=== PATIENT | female | born 1965 | race Caucasian/White ===

== ENCOUNTER 2016-12-11 05:50 | Day surgery (SDC) | payer BC ==
[~2016-12-11] VITALS: Ht 162.6 cm; Wt 56.0 kg
[~2016-12-11 05:50] MED LIST: ASCO500T43 PO; CRAN1CAP6 PO; HYDR25SU38 RECTALLY; IBUP-1724 PO
--- OUTSIDE RECORDS SUMMARY | 2016-12-11 05:54 | XMS REPORT ---
Author Author GENERATED, SYSTEM Organization Unknown Address Unknown Phone Unavailable Care Team Providers Care Coal Sample Tester Name Role Phone MD KELTON, NARDA PP [phone] Reason For Visit Chief Complaint FEELS BAD Social History Functional Status Vital Signs Results Problems Encounter Diagnosis No relevant problems exist. Encounters Encounter Diagnosis No relevant problems exist. Plan of Care Procedures No relevant procedures performed. Immunizations No immunizations administered or ordered. Hospital Course Hospital Discharge Instructions Allergies, Adverse Reactions, Alerts * Latex Allergy has not been assessed. * IV Contrast Allergy has not been assessed. Medication Medication reconciliation has not been performed.
--- OUTSIDE RECORDS SUMMARY | 2016-12-11 05:55 | XMS REPORT ---
Author Author Trevor Mercado Organization [employer] Address Unknown Phone Unavailable Care Team Providers Care Sales Representative Rural Power Name Role Phone Trevor Mercado CP Unavailable Allergies No Known Allergies Problems Problem Type Condition Code Onset Dates Condition Status Assessment Dental caries, unspecified K02.9 Active Medications No Known Medications Procedures Procedure Coding System Code Date RESIN COMPOS - 2 SURFACES POSTERIOR CPT-4 D2392 Jun 16, 2016 Results No Known Results Summary Purpose [employer] Submission
--- OUTSIDE RECORDS SUMMARY | 2016-12-11 05:55 | XMS REPORT | Referral Summary ---
Author Author [facility] Organization [facility] Address Unknown Phone Unavailable Care Team Providers Care Aviation Electrician Name Role Phone No PCP, States Primary Care Physician [phone] Encounter VC Date(s): 09/04/15 - 09/04/15 [facility] [address] [place] [id number] Discharge Disposition: 01-Home or Self Care Attending Physician: Arya Velez MD Vital Signs Most recent to 1 oldest [Reference Range]: Temperature Tympanic 36.7 degC [36.6-38.1 degC] (09/04/15 9:47 AM) Peripheral Pulse 76 bpm Rate [60-100 bpm] (09/04/15 9:47 AM) Blood Pressure 120/78 mmHg [90-140/60-90 mmHg] (09/04/15 9:47 AM) Problem List Condition Effective Dates Status Health Status Informant Tobacco Active patient user(Confirmed) Allergies, Adverse Reactions, Alerts No Known Allergies Medications Bactrim DS 800 mg-160 mg oral tablet 1 tabs, Oral, BID, X 7 days, # 14 tabs, 0 Refill(s), Pharmacy: [facility] #[id number] Start Date: 09/04/15 Stop Date: 09/11/15 Status: Ordered Results Urinalysis Most recent to 1 oldest [Reference Range]: UA Color Yellow (09/04/15 10:00 AM) UA Appear Clear (09/04/15 10:00 AM) UA pH [5.0-8.0] 6.0 (09/04/15 10:00 AM) UA Leuk Est Negative [Negative] (09/04/15 10:00 AM) UA Nitrite Negative [Negative] (09/04/15 10:00 AM) UA Protein Negative [Negative] (09/04/15 10:00 AM) UA Glucose Negative [Negative] (09/04/15 10:00 AM) UA Ketones Negative [Negative] (09/04/15 10:00 AM) UA Urobilinogen 0.2 mg/dL [<=1.0 mg/dL] (09/04/15 10:00 AM) UA Bili [Negative] Negative (09/04/15 10:00 AM) UA Blood [Negative] Negative (09/04/15 10:00 AM) UA Spec Grav <=1.005 [1.003-1.030] (09/04/15 10:00 AM) Type Clean Catch (09/04/15 10:00 AM) Immunizations No data available for this section Procedures No data available for this section Social History Social History Type Response Smoking Status Current every day smoker Assessment and Plan Extracted from: Title: Office Visit Note Author: Arya Velez MD Date: 09/04/15 Assessment/Plan Lower urinary tract symptoms Plan: I'm going to culture your urine and see what grows out. In the meantime I am going to place you on Bactrim. Let me know if your symptoms are not improving or if you're developing new or concerning symptoms. Stay well-hydrated. Orders: sulfamethoxazole-trimethoprim, 1 tabs, Oral, BID, X 7 days, # 14 tabs , 0 Refill(s), Pharmacy: [facility] #[id number]
--- OUTSIDE RECORDS SUMMARY | 2016-12-11 05:55 | XMS REPORT | Continuity of Care Document ---
Author Author [facility] Organization [facility] Address Unknown Phone Unavailable Allergies Active Description Code Type Severity Reaction Onset Reported/Identified Relationship to Patient Clinical Status Yes No Known Drug Allergies Drug Allergy 06/14/2012 Yes No Known Drug Allergies Drug Allergy N/A N/A 06/14/2012 Medications Problems Date Dx Coded Attending Type Code Diagnosis Diagnosed By 06/14/2012 Bruce Kimbrough MD Final 305.1 TOBACCO USE DISORDER 06/14/2012 Bruce Kimbrough MD Final 338.19 ACUTE PAIN NEC 06/14/2012 Bruce Kimbrough MD Final 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 Visit Date/Time Discharge Status Pt. Type Provider Facility Loc./Unit Complaint [id number] 06/14/2012 13:25:00 2011 15:13:00 DIS Emergency Bruce Kimbrough MD [facility] [place]
--- OUTSIDE RECORDS SUMMARY | 2016-12-11 05:55 | XMS REPORT ---
Author Author Trevor Mercado Organization [employer] Address Unknown Phone Unavailable Care Team Providers Care Shot Blast Equipment Operator Name Role Phone Trevor Mercado CP Unavailable Allergies, Adverse Reactions, Alerts Substance Reaction Event Type N.K.D.A. Info Not Available Non Drug Allergy Problems Problem Type Condition Code Onset Dates Condition Status Assessment Encounter for dental examination and cleaning without abnormal findings Z01.20 Active Medications No Known Medications Procedures Procedure Coding System Code Date PALLIATVE TX DENTAL PAIN-MINOR PROC CPT-4 D9110 Jun 09, 2016 LTD ORAL EVALUATION - PROBLEM FOCUS CPT-4 D0140 Jun 09, 2016 Results No Known Results Summary Purpose eClinicalWorks Submission
[2016-12-11 06:14] VITALS: Ht 162.6 cm; Wt 56.0 kg
[2016-12-11 06:15] VITALS: BP 136/82; PULSE 78; RESP 13; TEMP 98.3; O2SAT 95
--- NOTE | 2016-12-11 06:59 | ANESPREOP ---
Anesthesia Record Date and Time DATE: 12/11/16 TIME: 06:57 Proposed Surgical Procedure COLONOSCOPY NPO since: 2229 Allergies: Coded Allergies: No Known Drug Allergies (Verified Allergy, Unknown, 12/11/16) Ht/Wt/BMI Height: 5 ' 4.00 " Weight: 56.000 kg BMI: 21.2 kg/m2 Vital Signs Date Time Temp Pulse Resp B/P Pulse Ox O2 Delivery O2 Flow Rate FiO2 12/11/16 06:15 98.3 78 13 136/82 95 Room Air Medications Inpatient Medications Current Medications Medications (Trade) Dose Ordered Sig/Gloria Start Time Stop Time Status Last Admin Dose Admin Lactated Ringer's (Lactated Ringers) 1,000 ml @ 50 mls/hr Q20H 12/11/16 07:00 12/11/16 06:45 50 MLS/HR Ascorbic Acid (Vitamin C) 500 Mg Tablet.er, 1 TAB PO DAILY, (Reported) Last Taken: on 12/09/16 Cranberry Conc/Ascorbic Acid (Cranberry Plus Vitamin C Sftgl) 1 Each Capsule, 1 CAP PO DAILY, (Reported) Last Taken: on 12/09/16 Hydrocortisone Acetate (Anusol-Hc) 25 Mg Supp.rect , 1 UNIT RECTALLY DAILY PRN for HEMORRHOIDS, (Reported) Last Taken: on 12/10/16 2100 Ibuprofen (Ibuprofen) 200 Mg Tablet, 2 TAB PO PRN, (Reported) Last Taken: on 12/04/16 Currently on Beta Greyson: No Medical/Surgical History Anesthesia PMH: Reports: Hiatal Hernia, Tuberculosis (HX OF TESTED POSITIVE- DOES CHEST XRAY AND MEDS) Smoking Status: Current every day smoker # of Packs per Day: 0.5 # of Years: 35 Use Chewing Tobacco?: No Second Hand Exposure: No Substance Use Type: does not use Alcohol Intake: none HX of Last Menstrual Period: 2007 Past Surgical History Orthopedic Surgeries: Abdominal Surgeries: Yes - APPY (with hyst) Genitourinary Surgeries: Yes - SUMAYA Cardiac Surgeries: No Endocrine Surgeries: No Reproductive Surgeries: No Neurological Surgeries: No Ear Surgeries: No Nose Surgeries: No Throat Surgeries: No Other Surgeries: Yes - EGD Anesthesia Adverse Reactions: FOUND none Family Hx of Anesthesia Advers: none Hx of Motion Sickness: No Pertinent Findings EKG Rhythm: Sinus Rhythm Physical Exam Respiratory: Bilat breath sounds equal, Lungs clear Cardiovascular: FOUND Regular rate, rhythm Airway Assessment Mallampati Score: I Neck Extension: Good Overall Assessment: No Airway Concerns ASA: 2 Plan Anesthesia Plan: TIVA, LMA Discussion Discussed risks/options/alternatives of anesthesia and questions answered. Patient consents. Nursing pain assessment noted. Attestation Statement Prior to the delivery of any anesthetic medication, I examined the patient, developed the plan, obtained the patient's consent and discussed the risk and benefits of the procedure with the patient/guardian. SABINA HA DATA SECURITY ADMINISTRATOR Dec 11, 2016 06:59
[2016-12-11] MEDS ORDERED: LR 1,000 ML IV SCH (07:00)
[2016-12-11] MEDS ORDERED: LIDOCAINE 1% (10mg/ml) 2ml SDV INJ ONE (07:00)
[2016-12-11] MEDS ORDERED: PROPOFOL 500mg 50 ML IV ONE (07:15)
[2016-12-11 08:07] VITALS: BP 113/68; PULSE 71; RESP 18; TEMP 97.8; O2SAT 100
[2016-12-11 08:15] VITALS: BP 128/78; PULSE 74; RESP 18; O2SAT 99
[2016-12-11 08:30] VITALS: BP 139/83; PULSE 68; RESP 18; O2SAT 99
[2016-12-11 08:45] VITALS: BP 142/78; PULSE 72; RESP 18; O2SAT 99
--- NOTE | 2016-12-11 08:49 | ANESPO ---
Post-Op Note Date 12/11/16 Time: 08:45 Status Pt Participated in Evaluation: Pt participated in person Vital Signs Date Time Temp Pulse Resp B/P Pulse Ox O2 Delivery O2 Flow Rate FiO2 12/11/16 08:15 74 18 128/78 99 Room Air 12/11/16 08:07 97.8 Respiratory Function: Airway patent, Regular respirations Cardiovascular Function: Regular pulse Mental Status: Alert/oriented Pain Level Intensity: 0 Hydration: Taking po fluids Complications during Recovery None apparent Follow-Up Instructions Instructions Per Surgeon SABINA HA CRNA Dec 11, 2016 08:49
--- NOTE | 2016-12-11 11:16 | OPNOTEF ---
DATE OF OPERATION 12/11/2016 PREOPERATIVE DIAGNOSIS Rectal bleeding. POSTOPERATIVE DIAGNOSIS Rectal bleeding, within normal limits. OPERATION Colonoscopy, no biopsies taken. SURGEON Dell Sams M.D. ANESTHESIA TIVA DESCRIPTION OF OPERATIVE PROCEDURE The patient was prepped with Colyte the evening prior to the procedure. She was placed in the left lateral position. After a benign digital rectal exam, the colonoscope was inserted and advanced to the cecum without difficulty. Cecal landmarks were identified and the scope was slowly retracted. The ascending colon, cecum, transverse colon and sigmoid showed no evidence of hemorrhage, mass lesions, ulcerations, polyps or diverticular disease. There were no significant inflammatory changes. The rectum and anus were clear. The colon was suctioned. The scope removed with patient tolerating the procedure well. Follow up colonoscopy recommended in 10 years or sooner as clinically indicated. ROWENA
[2016-12-14] MEDS ORDERED: CLIN300C86 PO (16:29)
== END 2016-12-11 08:50 | disposition home or self-care (01) ==
LOC: SCU 05:50
DX: K62.5 Hemorrhage of anus and rectum (principal); Z72.0 Tobacco use; Z79.899 Other long term (current) drug therapy
CPT/HCPCS: 45378; J2704; J7120

== ENCOUNTER 2018-01-10 22:34 | Inpatient (IN) ==
--- NOTE | 2018-01-10 22:44 | Emergency Department Report ---
Lower Extremity Injury HPI - General Chief Complaint: Fall Stated Complaint: Slip fall/L hip pain Time Seen by Provider: 01/10/18 22:38 Source: patient, EMS Mode of arrival: EMS Limitations: no limitations - History of Present Illness HPI Narrative: Patient admits she "had a couple beers" and then was messing around with her adult children in her home, when she slipped and fell onto her left side on a hardwood floor. Patient had immediate severe left hip pain, just distal to the hip joint. Patient took "4 shots of rum to help with the pain," but the pain was unrelenting so she called EMS. Patient was given 50 g of fentanyl in route , with little relief of the pain. Currently patient states she is having ongoing pain, but would like to avoid further narcotics because she does not like the way they make her feel. - Related Data Home Medications Medication Instructions Recorded Confirmed Ibuprofen 2 tab PO PRN #0 12/05/15 11/05/17 Ascorbic Acid [Vitamin C] 1 tab PO DAILY #0 tab 12/10/16 11/05/17 Cranberry Conc/Ascorbic Acid 1 cap PO DAILY #0 12/10/16 11/05/17 [Cranberry Plus Vitamin C Sftgl] Hydrocortisone Acetate [Anusol-Hc] 1 unit RECTALLY DAILY PRN #0 12/10/16 Zyrtec (Cetirizine) 10 mg tablet 10 mg PO DAILY PRN 09/21/17 11/05/17 ferrous sulfate 325 mg (65 mg 325 mg PO DAILY tab 09/21/17 11/05/17 iron) tablet Previous Rx's Medication Instructions Recorded Medrol (Caio) (methylprednisolone) 4 mg PO DAILY #21 tab 11/05/17 4 mg tablets, dose pack Allergies Allergy/AdvReac Type Severity Reaction Status Date / Time No Known Drug Allergies Allergy Unknown Verified 01/10/18 22:44 Review of Systems All systems: reviewed and negative except as stated PFSH Patient Stated Medical History Dental Problems Yes Hiatal Hernia Yes Osteoarthritis Yes Clinic Medical History (Last Updated 11/04/17 @ 11:24 by YASSINE Leong) Scoliosis (Chronic Medical) Bronchitis (Resolved Medical) Surgical History: Colonoscopy, Dr. Sams, 2017. *Hysterectomy w/ intact ovaries - 2008 Family History: Family History (Last Updated 11/04/17 @ 11:22 by Marcia Robison Amelia) Brother Heart attack High blood pressure High cholesterol COPD (chronic obstructive pulmonary disease) Stroke Daughter Anxiety Mother Arthritis Osteoporosis High blood pressure Maternal Grandmother Dementia - Social History Smoking status: Current every day smoker Substance use type: does not use Alcohol intake: current Alcohol intake frequency: holidays/special occasions only Current occupational status: employed Physical Exam - Limitations Limitations: no limitations - General General appearance: alert, other (patient is in obvious pain, but declines pain medication at this time) - Normal Exams: Head:: Normocephalic without trauma Eyes:: Pupils are PERRLA w/ EOMI, No scleral icterus, irritation, or foreign bodies noted ENMT:: No facial trauma, nasal exudates, pharyngeal erythema, or exudates are noted Neck:: Full range of motion, without adenopathy, JVD, bruits or thyromegaly Chest/Respirations:: Clear all willis, with good airflow, and symmetry bilaterally Cardiovascular:: Regular rate and rhythm, without murmur or gallop, Pulses 2+ all extremities, capillary refill, <2 seconds all extremities Genitourinary:: Vulva without rashes, or lesions, no exudate or bleeding, noted externally Lymphatic:: No lymphadenopathy, or lymphedema noted Integumentary:: No rashes, hives, or bruising noted, hair and nails, without abnormality Neurological:: Patient is alert, and oriented, cranial nerves, motor/sensory/ cerebellar, exams w/o gross deficits, to observation Psychiatric:: Patient exhibits, appropriate attention, emotion and affect - Extremities Exam Extremities exam: Present: other (significant left lateral hip tenderness, with severe pain with any movement of the hip. Neurovascularly intact) Course Vital Signs Temperature 97.9 F 01/10/18 22:36 Pulse Rate 110 H 01/10/18 22:36 Respiratory Rate 20 01/10/18 22:36 Blood Pressure 152/80 H 01/10/18 22:36 Pulse Oximetry 95 01/10/18 22:36 Temperature 98.2 F 01/10/18 23:06 Pulse Rate 89 01/10/18 23:06 Respiratory Rate 24 01/10/18 23:06 Blood Pressure 119/69 01/10/18 23:06 Pulse Oximetry 96 01/10/18 23:06 Extremity Injury, Lower - MDM Narrative Medical decision making narrative: Hip/pelvic film shows proximal left femoral neck fracture with mild impaction Case is discussed with [facility] surgery, patient will be admitted to surgical floor outpatient to Dr. Leggett, with an expected hospitalist consultation for preop clearance. After the case and findings were discussed with the patient, she is accepting of pain medication, and is given 0.5 mg Dilaudid IV Disposition Clinical Impression: Fracture of femoral neck, left Qualifiers: Encounter type: initial encounter Fracture type: closed Qualified Code(s): S72.002A - Fracture of unspecified part of neck of left femur, initial encounter for closed fracture Disposition: 02 To O[place] [facility] [place]: Improved Prescriptions: No Action Ibuprofen 2 tab PO PRN #0 Cranberry Conc/Ascorbic Acid [Cranberry Plus Vitamin C Sftgl] 1 cap PO DAILY #0 Hydrocortisone Acetate [Anusol-Hc] 1 unit RECTALLY DAILY PRN #0 PRN Reason: HEMORRHOIDS Ascorbic Acid [Vitamin C] 1 tab PO DAILY #0 tab ferrous sulfate 325 mg (65 mg iron) tablet 325 mg PO DAILY tab Medrol (Caio) (methylprednisolone) 4 mg tablets, dose pack 4 mg PO DAILY #21 tab Zyrtec (Cetirizine) 10 mg tablet 10 mg PO DAILY PRN Referrals: Ivan Herr MD [Family Provider] - - Seen By: physician
[2018-01-10] MEDS ORDERED: SALINE FLUSH 10ml SYRINGE IVF PRN (23:58)
[2018-01-11] MEDS ORDERED: HYDROMORPHONE 2 MG/ML INJECTION IVP ONE ×2 (00:14)
[2018-01-11 00:54] VITALS: BMI 22.5
[2018-01-11] MEDS: NS 1,000 ML IV SCH ×3 (00:59→18:14)
[2018-01-11] MEDS: MORPHINE SULFATE 10 MG/ML VIAL IVP PRN ×3 (01:59→07:22)
--- NOTE | 2018-01-11 07:43 | Orthopedic History & Physical ---
Orthopedic HPI - HPI Comments Patient was messing around with her adult children in her home, when she slipped and fell onto her left side on a hardwood floor. She had immediate pain and was unable to ambulate due to severe pain. EMS was called and pt brought to [facility] for further evaluation. In the ER, pt admitted to having some beer and then taking several shots of rum after the fall to help with the pain. Xrays revealed a mildly impacted left femoral neck fracture. Pt was admitted under Dr Leggett's service for possible surgical fixation of this fracture. She denies striking her head or having any other areas of pain after the fall. [facility] Patient Stated Medical History Dental Problems Yes Hiatal Hernia Yes Osteoarthritis Yes Clinic Medical History (Last Updated 11/04/17 @ 11:24 by YASSINE Leong) Scoliosis (Chronic Medical) Bronchitis (Resolved Medical) Surgical History: Colonoscopy, Dr. Sams, 2017. *Hysterectomy w/ intact ovaries - 2008 Family History: Family History (Last Updated 11/04/17 @ 11:22 by YASSINE Leong) Brother Heart attack High blood pressure High cholesterol COPD (chronic obstructive pulmonary disease) Stroke Daughter Anxiety Mother Arthritis Osteoporosis High blood pressure Maternal Grandmother Dementia - Social History Smoking status: Current every day smoker (down to 1/2 pack per day at this time. ) Substance use type: does not use Alcohol intake: current Alcohol intake frequency: holidays/special occasions only Current occupational status: employed Review of Systems - Constitutional Constitutional: Absent: chills, fever(s), headache(s) - Cardiovascular Cardiovascular: Absent: chest pain, palpitations, syncope, dyspnea on exertion - Respiratory Respiratory: Absent: cough, dyspnea - Gastrointestinal Gastrointestinal: Absent: abdominal pain, diarrhea, vomiting - Genitourinary Genitourinary Female: Absent: dysuria - Musculoskeletal Musculoskeletal: Present: as per HPI - Integumentary/Breasts Integumentary: Absent: lesions, rash - Neurological Neurological: Absent: frequent falls, numbness, paresthesias - Hematologic/Lymphatic Hematologic/Lymphatic: Absent: easy bleeding Medications Home Medications Medication Instructions Recorded Confirmed Type Ibuprofen 2 tab PO PRN #0 12/05/15 01/11/18 History Ascorbic Acid [Vitamin C] 1 tab PO DAILY #0 tab 12/10/16 01/11/18 History Cranberry Conc/Ascorbic Acid 1 cap PO DAILY #0 12/10/16 01/11/18 History [Cranberry Plus Vitamin C Sftgl] Hydrocortisone Acetate [Anusol-Hc] 1 unit RECTALLY DAILY PRN #0 12/10/16 History Zyrtec (Cetirizine) 10 mg tablet 10 mg PO DAILY PRN 09/21/17 01/11/18 History ferrous sulfate 325 mg (65 mg 325 mg PO DAILY tab 09/21/17 01/11/18 History iron) tablet Allergies Allergy/AdvReac Type Severity Reaction Status Date / Time No Known Drug Allergies Allergy Unknown Verified 01/10/18 22:44 Exam - Constitutional Vital Signs: Temperature 97.9 F 01/11/18 07:24 Pulse Rate 79 01/11/18 07:24 Respiratory Rate 18 01/11/18 07:24 Blood Pressure 135/82 01/11/18 07:24 Pulse Oximetry 97 01/11/18 07:24 General: cooperative, healthy appearing, no acute distress, well developed Nutritional Appearance: well nourished Orientation: alert - Psych Mood: normal Affect: normal Attitude: cooperative - LLE General: normal to inspection, no obvious deformity Hip Palpation: Tender: lateral, greater trochanter Skin: no rashes or lesions noted, no ecchymosis, no lacerations or abrasions Hip Range of Motion: hip ROM painful Ankle Range of Motion: normal ROM Neurological: no deficits, normal to light touch Vascular: dorsalis pedis pulse within normal limits - Labs Result Diagrams: 01/11/18 00:33 01/11/18 00:33 Abnormal lab results 01/11/18 Range/Units 00:33 Sodium 145 H (134-144) MEQ/L Anion Gap 17 H (5-15) meq/L Specimen Hemolysis 139 H (0-25) H & H 01/11/18 Range/Units 00:33 Hgb 13.8 (12-16) GM/DL Hct 41.1 (36-46) % Coagulation 01/11/18 Range/Units 00:34 INR 0.96 (0.92-1.18) Orthopedic Assessment and Plan (1) Fracture of femoral neck, left Status: Acute Qualifiers: Qualified Code(s): S72.002A - Fracture of unspecified part of neck of left femur, initial encounter for closed fracture Assessment and Plan: Pt is generally in good overall health and has been active. Discussed the nature of her injury as well as surgical options and recommendations. Will plan on cannulated screw fixation of the left hip later today if cleared medically. Discussed the risk vs benefits and possible complications related to this procedure. Pt informed that screw fixations occasionally fail and may require additional surgery. Pt encouraged to stop smoking as it can affect her ability to heal this fracture. Will offer smoking cessation education while she is in the hospital. SCDs for DVT protection. She will need Lovenox post op for DVT coverage. Hospital Course Summary Disclaimer: The visit summary below is not to be considered part of the above Progress Note.
[2018-01-11] MEDS ORDERED: MORPHINE SULFATE 10 MG SYRINGE IVP PRN (07:45)
--- NOTE | 2018-01-11 07:56 | Consult Note ---
Consult Information - Data of Consult Consult date: 01/11/18 Requesting Physician: Kam Leggett MD Primary Care Provider: Ivan Herr MD - Consult Narrative Reason for consult: Pre-op/medical management History of present illness: Patient was "messing around" w/ her adult children, celebrating that she (her daughter) was likely going to get her kids back (there is a court collins) - had a few (3) beers, playing with Nerf guns, slipped on wood floor and hit the floor. Had immediate pain. States she tried a few shots of rum for the pain but it was clear that wasn't going to help so they called EMS. She reports she drinks a 12 pack over the course of a weekend. Doesn't typically drink during the week. "Social drinker. I'm a light weight." NO illegal drugs. Doesn't like using narcotics. Smokes 1/2ppd currently - trying to quit. No chronic health problems. Has been in her usual state of health. Last ate a piece of bologna at 3pm yesterday. In ED she was found to have a mildly impacted L hip fx and was admitted under ortho service for repair. Hospitalist group consulted for pre-op clearance/med management. Past Medical History Medical History: Medical History (Last Updated 11/04/17 @ 11:24 by Marcia Robison [facility]) Scoliosis (Chronic) Bronchitis (Resolved) Surgical History: Colonoscopy, Dr. Sams, 2017. *Hysterectomy w/ intact ovaries - 2008 (secondary to fibroids) Family History: Family History Brother Heart attack High blood pressure High cholesterol COPD (chronic obstructive pulmonary disease) Stroke Daughter Anxiety Mother Osteoporosis High blood pressure Maternal Grandmother Dementia Family History: As Above - Social History Smoking status: Current every day smoker (currently smokes 1/2ppd. 15+ year history of smoking) Substance use type: does not use Alcohol intake frequency: other (drinks on weekends - 12 pack over the entrie weekend. 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 Worse with movement.) Medications Home Medications Medication Instructions Recorded Confirmed Type Ibuprofen 2 tab PO PRN #0 12/05/15 01/11/18 History Ascorbic Acid [Vitamin C] 1 tab PO DAILY #0 tab 12/10/16 01/11/18 History Cranberry Conc/Ascorbic Acid 1 cap PO DAILY #0 12/10/16 01/11/18 History [Cranberry Plus Vitamin C Sftgl] Hydrocortisone Acetate [Anusol-Hc] 1 unit RECTALLY DAILY PRN #0 12/10/16 History Zyrtec (Cetirizine) 10 mg tablet 10 mg PO DAILY PRN 09/21/17 01/11/18 History ferrous sulfate 325 mg (65 mg 325 mg PO DAILY tab 09/21/17 01/11/18 History iron) tablet Allergies Allergy/AdvReac Type Severity Reaction Status Date / Time No Known Drug Allergies Allergy Unknown Verified 01/10/18 22:44 Exam Vital Signs: Temperature 97.9 F 01/11/18 07:24 Pulse Rate 79 01/11/18 07:24 Respiratory Rate 18 01/11/18 07:24 Blood Pressure 135/82 01/11/18 07:24 Pulse Oximetry 97 01/11/18 07:24 Height/Weight/BMI: Height 1.63 m Weight 60.2 kg Body Mass Index 22.5 - Constitutional Present: no acute distress, well nourished, well developed - Routine HEENT Exam Head: Present: normocephalic, atraumatic Eye: Present: EOMI, PERRL ENT: Present: mucous membranes moist, oropharynx clear - Routine Neck Exam Absent: lymphadenopathy - Routine Respiratory Exam Present: CTA bilaterally. Absent: wheezes - Routine Cardiovascular Exam Present: RRR, no murmur - Routine Abdominal Exam Present: soft, normoactive bowel sounds. Absent: tenderness, distended - Routine Extremities Exam Present: no edema, normal capillary refill Comments: pain in L hip. No bruising. - Routine Skin Exam Present: dry, warm - Routine Neurological Exam Present: alert, oriented X3, CN II-XII intact - Routine Psychiatric Exam Present: normal affect, cooperative Results - Labs CBC & Chem 7: 01/11/18 00:33 01/11/18 00:33 - Imaging and Cardiology Chest x-ray Status: image reviewed by me Additional comments: no acute findings Assessment and Plan (1) Fracture of femoral neck, left Current visit: Yes Status: Acute Assessment and Plan: Assessment Left femoral neck fracture Tobacco abuse Mild hypernatremia - POA (145) Plan NPO for surgery later today. IVF's and pain management per ortho. EKG, CXR labs completed. Add liver panel, GGT and urine drug screen. Good surgical candidate. SCD's for DVT ppx Consult RT for tobacco cessation. Offer nicotine patch. Full Code. Care to return to Dr. Taylor on DC. Thanks for the consult. Will follow until DC. DVT Prophylaxis: SCD's Resuscitation Status: Full Code - Physician Narrative Physician: Viviana Doyle MD Narrative: Date: 01/11/18 Time: 9:35 AM-I reviewed this chart, the patient history, and the STRUCTURAL METAL WORKER's/PA's documented findings as above. We discussed and formulated the assessment and plan as above with the additions below.-Dr. Doyle The patient was seen this morning in her room. She states that she was running on a wood floor with socks on and slipped and fell hard on her left hip. She did not lose consciousness. She did not hit her head. She did feel lightheaded after she fell and thinks this was secondary to pain. She states she does not drink on a daily basis. She states she has been otherwise well. No recent fevers chills or sweats. No chest pains or palpitations. No lightheadedness other than last night after her fall. She did have an episode in August when she was under a lot of stress and went to see her mother. She had an episode of loss of consciousness witnessed by her children. She was evaluated by Dr. Portillo for possible seizure. She underwent CT head and MRI which were reportedly normal. She states that they decided she probably was suffering from exhaustion. She had never had an episode like that before and has not had any episodes since. She has changed jobs and her stress level has improved. On exam she is alert and in no acute distress. HEENT Reveals sclerae to be anicteric, oropharynx is moist. Neck is supple. Chest is clear to auscultation. Cardiovascular reveals a regular rate and rhythm. Abdomen is soft and nontender. Extremities are free of edema. Skin is warm and dry and without rashes. Chest x-ray on my read and per radiology reveals no cardiopulmonary abnormalities Liver enzymes show mildly elevated AST at 42. Total protein is high at 8.7. Albumin is high at 5.2. GGT is pending. Remainder of labs as above. Impression and plan Closed posttraumatic left femoral neck fracture-plan for surgery later today as long as EKG shows no significant abnormalities. EKG has been ordered and is pending at this time. CBC and basic metabolic profile tomorrow. Excessive alcohol use. Current recommendations are no more than 1 drink per day for women. Will discuss with the patient. Evaluation for possible osteoporosis. Hospital Course Summary Disclaimer: The visit summary below is not to be considered part of the above Progress Note.
[2018-01-11] MEDS ORDERED: HYDROMORPHONE 2 MG/ML INJECTION IVP PRN ×2 (08:11→13:29)
--- NOTE | 2018-01-11 08:42 | XRay Report ---
Indication: left hip pain after fall PROCEDURE: XR pelvis w/ 2 view LT hip: Encounter: Initial Comparison: None Findings: Nondisplaced fracture of the subcapital region of the left femoral neck. No additional acute fracture or dislocation seen. Impression: Closed posttraumatic left femoral neck fracture. .
[2018-01-11] MEDS ORDERED: NICOTINE 14 MG PATCH TD PRN (08:55)
--- NOTE | 2018-01-11 08:57 | XRay Report ---
Indication: preoperative study PROCEDURE: XR chest 1V: Encounter: Initial Comparison: December 02, 2017 Findings: The lungs are stable in appearance without new focal airspace consolidation. There is no pleural effusion or pneumothorax. The heart size, pulmonary vascularity and mediastinal contours are unchanged. IMPRESSION: Stable appearance of the chest without acute cardiopulmonary disease. .
[2018-01-11] MEDS ORDERED: NICOTINE PATCH REMOVAL TD PRN (09:14)
[2018-01-11] MEDS: LR 1,000 ML IV SCH ×2 (10:33→13:05)
[2018-01-11] MEDS ORDERED: CEFAZOLIN 1 G INJECTION IVP ONE (11:00)
--- NOTE | 2018-01-11 11:00 | Anesthesia Preoperative Report ---
Anesthesia Preoperative Record - Date and Time Date: 01/11/18 Preoperative Diagnosis: femoral neck fracture NPO Since Date: 01/10/18 NPO Since Time: 16:00 Allergies/Adverse Reactions: Allergies Allergy/AdvReac Type Severity Reaction Status Date / Time No Known Drug Allergies Allergy Unknown Verified 01/10/18 22:44 - Vital Signs Vital Signs: Temperature 98.2 F 01/11/18 10:32 Pulse Rate 74 01/11/18 10:32 Respiratory Rate 13 01/11/18 10:32 Blood Pressure 138/81 01/11/18 10:32 Pulse Oximetry 96 01/11/18 10:32 Height and Weight: Height 1.63 m Weight 60.2 kg Body Mass Index 22.5 - Medications Inpatient Medications: Current Medications Hydromorphone HCl (Dilaudid) 0.5 - 1 mg IVP Q1H PRN PRN Reason: Pain Last Admin: 01/11/18 10:03 Dose: 0.5 mg Sodium Chloride (Normal Saline) 1,000 mls @ 75 mls/hr IV .[id number] GAMA Last Infusion: 01/11/18 10:20 Dose: 0 mls/hr Lactated Ringer's (Lactated Ringers) 1,000 mls @ 50 mls/hr IV .Q20H GAMA Last Admin: 01/11/18 10:33 Dose: 50 mls/hr Nicotine (Nicoderm) 14 mg TD DAILY PRN Nicotine (Nicotine Patch Removal) 1 removal TD DAILY PRN Sodium Chloride (Iv Flush) 10 - 80 ml IVF PRN PRN PRN Reason: Flushing Last Admin: 01/11/18 07:23 Dose: 10 ml Home Medications: Home Medications Medication Instructions Recorded Confirmed Type Ibuprofen 2 tab PO PRN #0 12/05/15 01/11/18 History Ascorbic Acid [Vitamin C] 1 tab PO DAILY #0 tab 12/10/16 01/11/18 History Cranberry Conc/Ascorbic Acid 1 cap PO DAILY #0 12/10/16 01/11/18 History [Cranberry Plus Vitamin C Sftgl] Hydrocortisone Acetate [Anusol-Hc] 1 unit RECTALLY DAILY PRN #0 12/10/16 History Zyrtec (Cetirizine) 10 mg tablet 10 mg PO DAILY PRN 09/21/17 01/11/18 History ferrous sulfate 325 mg (65 mg 325 mg PO DAILY tab 09/21/17 01/11/18 History iron) tablet Is Patient on Beta Greyson?: No - Medical History Respiratory: Reports: Bronchitis (history of. ) Gastrointestional: Reports: Hiatal Hernia (asymptomatic) Neuro/Musculoskeletal: Reports: HX.MS.OSAR, Back Problems, Syncope (history of passing out), Other (hoarseness) - Surgical History GI Surgery/Treatments: Reports: Appendectomy (w/ hysterectomy) Reproductive Surgery/Treatment: Reports: Hysterectomy Anesthesia Reactions: None Hx Family Anesthesia Reaction: No History of Motion Sickness: No - Social History Smoking Status: Current every day smoker (currently smokes 1/2ppd. 15+ year history of smoking) Packs per day: 1 Pack-years: 15 Hx Chewing Tobacco Use: No Second Hand Exposure: No Substance Use Type: former substance user (last use 20 years ago), marijuana, amphetamines Alcohol Intake: current Alcohol Intake Frequency: other (drinks on weekends - 12 pack over the entrie weekend. Doesn't drink during the week.) - Pertinent Findings Laboratory: CBC and BMP 01/11/18 00:33 01/11/18 00:33 BMP 01/11/18 00:33 Sodium 145 H Potassium 4.0 Chloride 104 Carbon Dioxide 24 BUN 11.0 Creatinine 0.8 Glucose 83 Calcium 9.7 Liver Function 01/11/18 Range/Units 00:33 Total Bilirubin 0.70 (0.20-1.30) MG/DL AST 42 H (14-36) U/L ALT 20 (1-35) U/L Alkaline Phosphatase 47 (38-126) U/L Albumin 5.2 H (3.5-5.0) g/dL EKG: Sinus Rhythm - Physical Exam Respiratory Exam: Present: lungs clear, bilateral breath sounds equal Cardiovascular Exam: Present: regular rate and rhythm - Airway Assessment Mallampati Score: II TMD: 3 Fingerbreadths Neck Extension: fair Overall Assessment: no airway concerns - ASA ASA Score: 2, E - Plan Anesthesia: General TIVA, General Inhalation Gases - Discussion Discussion: Discussed risks/options/alternatives of anesthesia and questions answered. Patient consents. Nursing pain assessment noted. Attestation Statement: Prior to the delivery of any anesthetic medication, I examined the patient, developed the plan, obtained the patient's consent and discussed the risk and benefits of the procedure with the patient/guardian. - Additional Information Seen by Anesthesia: Yes
[2018-01-11] MEDS ORDERED: KETAMINE 500 MG/10 ML INJECTION ONE (11:08)
[2018-01-11] MEDS ORDERED: FentaNYL 250 MCG/5 ML INJECTION ONE (11:08)
[2018-01-11] MEDS ORDERED: MIDAZOLAM 2mg/2ml INJECTION ONE (11:08)
[2018-01-11] MEDS ORDERED: PROPOFOL 1,000 MG/100 ML VIAL ONE (11:09)
[2018-01-11] MEDS ORDERED: LIDOCAINE 1% (10mg/ml) 30ml SDV INJ ONE (12:05)
[2018-01-11] MEDS ORDERED: BUPIVACAINE 0.25% (2.5mg/ml) PF 30ml INJECTION ONE (12:05)
[2018-01-11] MEDS ORDERED: BUPIV 0.25% 30ml/LIDO 1% 30ml MIXTURE ID ONE (12:07)
[2018-01-11] MEDS ORDERED: EPHEDRINE 50mg/ml INJECTION ONE (12:15)
--- NOTE | 2018-01-11 12:52 | Remote Fluorsocopy Report ---
Indication: LEFT HIP FX ORIF PROCEDURE: RF hip LT 2 view: Encounter: Initial Comparison: Pelvis radiographs from yesterday Findings: Three fluoroscopic spot images are submitted for interpretation. Images show internal fixation of the left femoral neck fracture with placement of three partially threaded cannulated screws. Alignment is stable. Impression: Intraoperative fluoroscopy as above. Fluoroscopy time is 131.5 seconds. Fluoroscopy dose is 2340 mRad. .
[2018-01-11] MEDS ORDERED: ONDANSETRON 4 MG/2 ML INJECTION IVP PRN ×2 (12:53→13:53)
[2018-01-11] MEDS: HYDROMORPHONE 2 MG/ML INJECTION IVP PRN ×4 (12:54→13:34)
--- NOTE | 2018-01-11 13:17 | Anesthesia Postoperative Note ---
- Date and Time Date: 01/11/18 Time: 13:15 - Status Patient Participated in Evaluation: Patient Participated in Person Vital Signs: Temperature 96.8 F 01/11/18 13:15 Pulse Rate 86 01/11/18 13:15 Respiratory Rate 16 01/11/18 13:15 Blood Pressure 134/89 01/11/18 13:15 Pulse Oximetry 100 01/11/18 13:15 Respiratory Function: Airway Patent, Regular Respirations Cardiovascular Function: Regular Pulse Mental Status: Alert and Oriented Pain Intensity: 5 Hydration: IV Infusing Complications During Recover: None Apparent - Follow-Up Instructions Instructions: Per Surgeon
[2018-01-11] MEDS ORDERED: LORazepam 1 MG TABLET PO PRN (13:53)
[2018-01-11] MEDS ORDERED: NOZIN NASAL SWAB NAS ONE ×2 (13:53)
[2018-01-11] MEDS ORDERED: NAPROXEN 220 MG TABLET PO PRN (13:53)
[2018-01-11] MEDS ORDERED: SENNA + DOCUSATE TABLET PO PRN (13:53)
[2018-01-11] MEDS ORDERED: ACETAMINOPHEN 325 MG TABLET PO PRN (13:53)
[2018-01-11] MEDS ORDERED: CETIRIZINE 10 MG TABLET PO PRN (13:53)
[2018-01-11] MEDS ORDERED: MAG-AL + SIM ORAL LIQUID 30ml PO PRN (13:53)
[2018-01-11] MEDS: NOZIN NASAL SWAB NAS SCH ×3 (14:00→21:14)
[2018-01-11] MEDS: Oxycodone *IR* 5 MG TABLET PO PRN ×2 (14:22→23:18)
[2018-01-11] MEDS: ENOXAPARIN 40 MG/0.4 ML INJECTION SQ SCH (20:03)
[2018-01-11] MEDS: CEFAZOLIN 1 G in NS 100 ML IV SCH (20:03)
[2018-01-12] MEDS: NS 1,000 ML IV SCH ×2 (02:59→09:38)
[2018-01-12] MEDS: CEFAZOLIN 1 G in NS 100 ML IV SCH (03:00)
[2018-01-12] MEDS: NOZIN NASAL SWAB NAS SCH ×2 (03:00→04:57)
[2018-01-12] MEDS: Oxycodone *IR* 5 MG TABLET PO PRN ×3 (03:09→11:39)
[2018-01-12 07:42] VITALS: RESP 18
[2018-01-12] MEDS ORDERED: FERROUS SULFATE 324 MG TABLET PO SCH (08:00)
--- NOTE | 2018-01-12 08:01 | Operative Note ---
DATE OF PROCEDURE 01/11/2018 PREOPERATIVE DIAGNOSIS Left nondisplaced femoral neck fracture. POSTOPERATIVE DIAGNOSIS Left nondisplaced femoral neck fracture. PROCEDURE PERFORMED Internal fixation of left femoral neck fracture. SURGEON Sabino Ayala MD ASSIST David Bowser PA-C COMPLICATIONS None. ANESTHESIA TIVA. DESCRIPTION OF PROCEDURE Mrs. Cao and her left hip were identified and marked in the preoperative holding area. She was brought back to the operating suite. She was placed under general anesthesia on her hospital room bed and then she was transferred to the fracture table. Both feet were placed in well-padded traction boots. The left leg was placed into a neutral position without traction. The right leg was placed into extension. The left lower extremity was then prepped and draped in my normal sterile fashion. Fluoroscopic imaging confirmed that the fracture was nondisplaced. Local anesthetic was used at the incision site laterally. A 4-5 cm incision was made through the skin and IT band. I then inserted three guide pins from the lateral cortex into the femoral head. The first was placed into an inferior-center location. The second and third were placed superior, one anterior and posterior. Once all three were in appropriate positions, I overreamed the lateral cortex and measured. The first screw that was placed was an 80 mm screw. It had an excellent bite. The next screw was 75 mm and the third one was also 80 mm. The second screw, which was posterior-superior, also had excellent bite. The third screw, which was superior-anterior, had a good bite. Multiple fluoroscopic imaging, including live images, were taken to ensure we had not violated the cortex and I was happy with the screw position. The wound was then thoroughly irrigated before being closed in layers. A sterile dressing will be placed and then she will be taken off the fracture table and allowed to awaken from general anesthesia and taken to the recovery room under the care of Anesthesia. She tolerated the procedure well. There were no complications. ROWENA
--- NOTE | 2018-01-12 08:13 | Orthopedic Progress Note ---
Date: Date: 01/12/18 Time: 08 Subjective/Severity of Illness: Pt is doing well. Her pain is controlled but moderate in intensity with any movement. Denies any nausea, CP, SOA, cough or other issues. She is hopeful to go home today. No other concerns at this time. Orthopedic Exam Vital signs: Temperature 97.7 F 01/12/18 07:41 Pulse Rate 71 01/12/18 07:41 Respiratory Rate 18 01/12/18 07:41 Blood Pressure 152/88 H 01/12/18 07:41 Pulse Oximetry 99 01/12/18 07:41 - Constitutional General Appearance: Present: alert, cooperative, no acute distress - Respiratory Exam Present: non-labored - Cardiovascular Exam Present: pedal pulses intact - Extremities Exam Present: no edema, pulses intact. Absent: calf tenderness - Dressing Dressing: dry, intact, no drainage - Neurological Exam Present: no deficits - Psychiatric Exam Present: alert, normal affect - Labs Result Diagrams: 01/12/18 04:27 01/12/18 04:27 Abnormal lab results 01/12/18 01/12/18 Range/Units 04:27 04:27 RBC 3.29 L (4.00-5.20) M/MM3 Hgb 10.6 L D (12-16) GM/DL Hct 32.4 L D (36-46) % Neut % (Auto) 68.7 H (33-66) % Potassium 3.4 L (3.6-5) MEQ/L Chloride 108 H (98-107) MEQ/L BUN 5.0 L D (7-17) MG/DL Creatinine 0.5 L D (0.7-1.2) mg/dL H & H 01/12/18 Range/Units 04:27 Hgb 10.6 L D (12-16) GM/DL Hct 32.4 L D (36-46) % Orthopedic Assessment and Plan (1) Fracture of femoral neck, left Status: Acute Qualifiers: Encounter type: initial encounter Fracture type: closed Qualified Code(s) : S72.002A - Fracture of unspecified part of neck of left femur, initial encounter for closed fracture Assessment and Plan: Lovenox x 30 days for VTE prophylaxis. Pt is a daily smoker which increases her risk of VTE. SCD's for added DVT coverage. PT/OT services to improve independent function. Will need to be foot flat / touch wt bearing on the left leg for several weeks. Discharge Planning per Case Management. - Anticoagulation Therapy Anticoagulation: Lovenox 40 mg SQ Daily x 30 days from day of surgery Hospital Course Summary Disclaimer: The visit summary below is not to be considered part of the above Progress Note.
[2018-01-12 11:00] VITALS: BP 133/87; PULSE 78; TEMP 96.4; O2SAT 98
--- NOTE | 2018-01-12 11:43 | Progress Note ---
- Date 01/12/18 Subjective: Patient is seen today sitting up eating breakfast. She reports she is feeling well other than the pain she has when she moves. Pain is currently 0 and at rest and 5 with movement. Appetite is normal. No chest pain, shortness of breath , nausea or vomiting. Objective Vital signs: Temperature 96.4 F L 01/12/18 11:00 Pulse Rate 78 01/12/18 11:00 Respiratory Rate 18 01/12/18 11:00 Blood Pressure 133/87 01/12/18 11:00 Pulse Oximetry 98 01/12/18 11:00 Height/Weight/BMI: Weight 61.7 kg - Constitutional Present: no acute distress, well nourished, well developed - Routine HEENT Exam Head: Present: normocephalic, atraumatic - Routine Respiratory Exam Present: CTA bilaterally. Absent: wheezes - Routine Cardiovascular Exam Present: RRR, no murmur - Routine Abdominal Exam Present: soft, non distended, non tender - Routine Extremities Exam Present: no edema, normal capillary refill - Routine Skin Exam Present: dry, warm - Routine Neurological Exam Present: alert, oriented X3 - Routine Lymphatic Exam Lymphatic: Absent: adenopathy - Routine Psychiatric Exam Present: normal affect, cooperative Results - Labs CBC & Chem 7: 01/12/18 04:27 01/12/18 04:27 Assessment and Plan (1) Fracture of femoral neck, left Current visit: Yes Status: Acute Assessment and Plan: Assessment Left femoral neck fracture S/P internal fixation by Dr. Ayala on 01/11/18 Tobacco abuse Mild hypernatremia - POA (145) Plan Discharge and Lovenox per ortho. Overall appears to be doing well. Recommend she follow-up with her PCP to discuss bone density testing. Recommend she start calcium plus vitamin D. Goal is to obtain 1500 mg calcium and 800 international units of vitamin D daily between her supplement and diet. Recommend smoking cessation. She is working on this. Recommend no more than 1 alcoholic drink daily. 01/12/2018-3:20 PM-the patient was dismissed today prior to me seeing her. I do agree with the assessment and plan above. - Physician Narrative Narrative: Date: 01/12/18 Time: 1140 Hospital Course Summary Disclaimer: The visit summary below is not to be considered part of the above Progress Note.
--- NOTE | 2018-01-12 14:09 | Discharge Summary ---
Orthopedic Discharge Info Date of admission: 01/11/18 13:38 Primary care physician: Ivan Herr MD Attending Physician: Sabino Ayala MD - Discharge Diagnosis (1) Fracture of femoral neck, left Qualifiers: Encounter type: initial encounter Fracture type: closed Qualified Code(s) : S72.002A - Fracture of unspecified part of neck of left femur, initial encounter for closed fracture Status: Acute - Procedures Procedures: Procedures Left hip open cannulated screw fixation - Laboratory Result Diagrams: 01/12/18 04:27 01/12/18 04:27 Laboratory: Abnormal lab results 01/12/18 01/12/18 Range/Units 04:27 04:27 RBC 3.29 L (4.00-5.20) M/MM3 Hgb 10.6 L D (12-16) GM/DL Hct 32.4 L D (36-46) % Neut % (Auto) 68.7 H (33-66) % Potassium 3.4 L (3.6-5) MEQ/L Chloride 108 H (98-107) MEQ/L BUN 5.0 L D (7-17) MG/DL Creatinine 0.5 L D (0.7-1.2) mg/dL H & H 01/12/18 Range/Units 04:27 Hgb 10.6 L D (12-16) GM/DL Hct 32.4 L D (36-46) % Orthopedic Discharge HPI - HPI Comments Patient was messing around with her adult children in her home, when she slipped and fell onto her left side on a hardwood floor. She had immediate pain and was unable to ambulate due to severe pain. EMS was called and pt brought to [facility] [place] [facility] for further evaluation. In the ER, pt admitted to having some beer and then taking several shots of rum after the fall to help with the pain. Xrays revealed a mildly impacted left femoral neck fracture. Pt was admitted under Dr Leggett's service for possible surgical fixation of this fracture. She denies striking her head or having any other areas of pain after the fall. Dr. Ayala did take care of her surgically. Orthopedic Hospital Course Hospital course: 01/12/18 14:07 After appropriate preoperative clearance and signing of operative consent, the patient was given IV antibiotics, according to orthopedic protocol. The patient was taken to the operating room and underwent open fixation of her left hip femoral neck fracture. Following surgery, antibiotics were discontinued less than 24 hours according to protocol. Appropriate anticoagulants were initiated and SCDs added for DVT prevention. The dressing was clean, dry, and intact. Pain control was obtained via multimodal approach. Bowel motivation addressed with scheduled and PRN medications. Early mobilization was initiated through PT services. Discharge arrangements made by a collaborative effort between the patient and Case Management. Follow-up is scheduled in 2-3 weeks. Discharge instructions given by orthopedic providers and nursing staff at discharge. Discharge condition was good. Care extended to > 2 midnight stays?: No Discharge Plan - Med Rec/Dispo Referrals/Follow Up: Paul Duffy MD [Physician] - 2 Months Ivan Herr MD [Primary Care Provider] - (f-u to discuss bone density testing, smoking cessation) [place] Instructions: [facility] Postop Instructions Prescriptions: New Enoxaparin Sodium [Lovenox] 40 mg SQ Q24H #30 syringe Oxycodone *IR* [Roxicodone *Ir*] 5 - 15 mg PO Q3H PRN #60 tab PRN Reason: Pain Acetaminophen [Tylenol] 650 mg PO Q4H PRN tablet PRN Reason: Pain Continue Ibuprofen 2 tab PO PRN #0 Cranberry Conc/Ascorbic Acid [Cranberry Plus Vitamin C Sftgl] 1 cap PO DAILY #0 Hydrocortisone Acetate [Anusol-Hc] 1 unit RECTALLY DAILY PRN #0 PRN Reason: HEMORRHOIDS Ascorbic Acid [Vitamin C] 1 tab PO DAILY #0 tab ferrous sulfate 325 mg (65 mg iron) tablet 325 mg PO DAILY tab Zyrtec (Cetirizine) 10 mg tablet 10 mg PO DAILY PRN PRN Reason: Headache /Pain - Disposition 01 Discharged Home, Self-Care - Dismissal Complete Discharge Instructions are:: Complete
[2018-01-12] MEDS: ENOXAPARIN 40 MG/0.4 ML INJECTION SQ SCH (14:38)
== END 2018-01-12 15:00 | disposition home or self-care (01) | DRG 481 ==
LOC: SRG 22:34 → ED 22:34 → SRG 01-11 00:50
PROVIDERS: ADMIT Orthopaedic Surgery; ATTEND Orthopaedic Surgery